=== PATIENT | female | born 1955 | race Caucasian/White ===

== ENCOUNTER 2019-05-07 20:27 | Emergency (ER) | payer OTHER ==
[~2019-05-07] VITALS: Ht 165.1 cm; Wt 104.3 kg
[2019-05-07 20:35] VITALS: BP_SYST 131
--- NOTE | 2019-05-07 20:41 | NUR ---
Patient to ER bed [place]adwick to gown for evaluation. Side rails up. Report given to Aysha MUNOZ.
--- NOTE | 2019-05-07 20:50 | NUR ---
Patient arrived c/o left hand pain d/t injury. Patient is a&o x 4, respirations even and unlabored, denied any c/p and sob. VS WNL, pain severity 7-8/10, currently applying ice pack to the affected area. Will continue to monitor.
--- NOTE | 2019-05-07 20:55 | NUR ---
ER at bedside examining patient.
--- NOTE | 2019-05-07 21:05 | NUR ---
X-ray at bedside.
[2019-05-07] MEDS ORDERED: HYDROcodone/ACETAMIN 5-325 MG TAB (NORCO/ VICODIN) PO ONE (21:15)
--- NOTE | 2019-05-07 21:55 | NUR ---
ER at bedside explaining the x-ray results to the patient.
--- NOTE | 2019-05-07 22:30 | NUR ---
Patient given written and verbal discharge instructions and verbalizes understanding. ER MD discussed with patient the results and treatment provided. Patient in stable condition. ID arm band removed. Rx of Hydrocodone 5/325mg given. Patient educated on pain management and to follow up with PMD. Pain Scale 0/10. Opportunity for questions provided and answered. Medication side effect fact sheet provided.
[2019-05-07 22:34] VITALS: BP_SYST 131
== END 2019-05-07 22:34 | disposition home or self-care (01) ==
LOC: SED 20:27
DX: S62.615A Displaced fracture of proximal phalanx of left ring finger, initial encounter for closed fracture (principal); W01.0XXA Fall on same level from slipping, tripping and stumbling without subsequent striking against object, initial encounter; Y93.89 Activity, other specified; Y92.89 Other specified places as the place of occurrence of the external cause; Y99.8 Other external cause status
CPT/HCPCS: 99283